=== PATIENT | male | born 1985 | race Caucasian/White ===

== ENCOUNTER 2019-10-27 13:05 | Emergency (ER) | payer SELFPAY ==
--- NOTE | 2019-10-27 13:51 | ER Document Report ---
ED Medical Screen (RME) - General Chief Complaint: Scrotal Pain, Acute Onset Stated Complaint: TESTICULAR PAIN Time Seen by Provider: 10/27/19 13:48 Mode of Arrival: Ambulatory Information source: Patient Notes: 34-year-old male presented to ED for complaint of right testicle discomfort. He states on October 17 the pain was so bad that it caused him to pass out. He states since then the pain is just been uncomfortable but his right testicle is drawn up into his pelvis. He states he went to [facility] this morning and they sent him to the emergency room. He is alert oriented respirations regular and unlabored speaking in full sentences. He states he does not smoke drinks maybe 6 times a year and no drugs. He states he does have a history of gout in his ankle and borderline diabetes. He is alert oriented respirations regular nonlabored speaking in full sentences. I have greeted and performed a rapid initial assessment of this patient. A comprehensive ED assessment and evaluation of the patient, analysis of test results and completion of medical decision making process will be conducted by an additional ED providers. - Related Data Allergies/Adverse Reactions: No Known Allergies Allergy (Unverified 10/27/19 13:45) Physical Exam - Vital signs Vitals: Temp Pulse Resp BP Pulse Ox 98.3 F 67 20 145/80 H 97 10/27/19 13:18 10/27/19 13:18 10/27/19 13:18 10/27/19 13:18 10/27/19 13:18 Course - Vital Signs Vital signs: Temp Pulse Resp BP Pulse Ox 98.3 F 67 20 145/80 H 97 10/27/19 13:45 10/27/19 13:18 10/27/19 13:18 10/27/19 13:18 10/27/19 13:18
--- NOTE | 2019-10-27 14:32 | ER Document Report ---
ED GI/ - General Chief Complaint: Scrotal Pain, Acute Onset Stated Complaint: TESTICULAR PAIN Time Seen by Provider: 10/27/19 13:48 Mode of Arrival: Ambulatory Notes: CHIEF COMPLAINT: Right testicular pain a week ago HPI: 34-year-old male presenting to the emergency department complaining of sudden onset of right testicular pain that occurred a week ago. Patient states he was sitting on the couch and stretched backward and sudden sharp pain in the right testicle region, felt like the right testicle pulled itself up into the lower abdomen. Patient states he "passed out" from the pain for a few minutes. Patient has had some intermittent discomfort through the last week in the right testicle but states today he is completely pain-free. He was somewhat concerned that the testicle seemed to be riding somewhat elevated on the right side relative to the left. Has not had any penile or testicular pain. Has not had any issues with urination. Has not had any flank pain. Went to an urgent care today and was referred into the emergency department for evaluation ROS: See HPI - all other systems were reviewed and are otherwise negative Constitutional: no fever Eyes: no drainage, no blurred vision ENT: no runny nose, no sore throat Cardiovascular: no chest pain Resp: no SOB, no cough GI: no vomiting, no diarrhea, no abdominal pain : no dysuria, positive testicular pain Integumentary: no rash Allergy: no hives Musculoskeletal: no extremity pain or swelling Neurological: no numbness/tingling, no weakness MEDICATIONS: I agree with the patient medications as charted by the RN. ALLERGIES: I agree with the allergies as charted by the RN. PAST MEDICAL HISTORY/PAST SURGICAL HISTORY: Reviewed and agree as charted by RN. SOCIAL HISTORY: Reviewed and agree as charted by RN. FAMILY HISTORY: No significant familial comorbid conditions directly related to patient complaint EXAM: Reviewed vital signs as charted by RN. CONSTITUTIONAL: Alert and oriented and responds appropriately to questions. Well-appearing; well-nourished, no acute distress HEAD: Normocephalic; atraumatic EYES: PERRL; Conjunctivae clear, sclerae non-icteric ENT: normal nose; no rhinorrhea; moist mucous membranes NECK: Supple without meningismus CARD: RRR; no murmurs, no clicks, no rubs, no gallops; symmetric distal pulses RESP: Normal chest excursion without splinting or tachypnea; breath sounds clear and equal bilaterally; no wheezes, no rhonchi, no rales, pulse oximetry 98% on room air not hypoxic ABD/GI: Normal bowel sounds; non-distended; soft, non-tender, no rebound, no guarding; no palpable organomegaly or masses. : Circumcised male. Bilateral testicles are present, the left testicle is lower than the right. The right testicle is slightly high but I am able to manually bring it down into the scrotum. There is no visible erythema or lesions. No visible urethral discharge. There is no testicular pain on palpation of the right or left testicle. No palpable masses. BACK: The back appears normal and is non-tender to palpation, there is no CVA tenderness EXT: Normal ROM in all joints; non-tender to palpation; no cyanosis, no effusions, no edema SKIN: Normal color for age and race; warm; dry; good turgor; no acute lesions noted NEURO: Moves all extremities equally; Motor and sensory function intact PSYCH: The patient's mood and manner are appropriate. Grooming and personal hygiene are appropriate. MDM: 34-year-old male who had sudden onset of pain a week ago in the right testicle but has absolutely no pain today. Right testicle is slightly high relative to the left but I am able to manually bring it down. We will send him for an ultrasound to ensure no blood flow issue but I have lower suspicion for an actual torsion given his lack of pain, lack of swelling or edema after 1 week. - Related Data Allergies/Adverse Reactions: No Known Allergies Allergy (Unverified 10/27/19 13:45) Past Medical History - General Information source: Patient - Social History Smoking Status: Never Smoker Family History: Reviewed & Not Pertinent Patient has homicidal ideation: No Physical Exam - Vital signs Vitals: Temp Pulse Resp BP Pulse Ox 98.3 F 67 20 145/80 H 97 10/27/19 13:18 10/27/19 13:18 10/27/19 13:18 10/27/19 13:18 10/27/19 13:18 Course - Re-evaluation Re-evalutation: 10/27/19 16:07 Ultrasound does not show evidence of torsion hernia or other abnormalities. Urine does not show evidence of infection. He has no pain at this time. Gave patient strict return instructions will have him follow-up with urology outpatient - Vital Signs Vital signs: Temp Pulse Resp BP Pulse Ox 98.3 F 67 20 145/80 H 97 10/27/19 13:45 10/27/19 13:18 10/27/19 13:18 10/27/19 13:18 10/27/19 13:18 Discharge - Discharge Clinical Impression: Testicular pain, right Condition: Stable Disposition: HOME, SELF-CARE Instructions: Testicular Pain ([facility]) Additional Instructions: Follow-up closely with urology for further evaluation of the testicular pain. Your ultrasound today did not show evidence of torsion or infection. If you have recurrent pain return for reevaluation as discussed. Referrals: PEE VIEIRA PA-C [Primary Care Provider] - Follow up as needed RUTH DOMINGUEZ MD [NO LOCAL MD] - Follow up as needed
[2019-10-27 14:54] LABS: APPEARANCE,URINE CLEAR; BILIRUBIN,URINE NEGATIVE (NEGATIVE); COLOR,URINE YELLOW; GLUCOSE, URINE NEGATIVE (NEGATIVE); KETONES,URINE NEGATIVE (NEGATIVE); LEUKOCYTE ESTERASE,URINE NEGATIVE (NEGATIVE); NITRITE,URINE NEGATIVE (NEGATIVE); PROTEIN,URINE NEGATIVE (NEGATIVE); URINE SPECIFIC GRAVITY 1.017; UROBILINOGEN,URINE NEGATIVE mg/dL (<2.0)
--- NOTE | 2019-10-27 15:41 | RADIOLOGY REPORT (SQ) ---
EXAM DESCRIPTION: U/S SCROTUM W/DOPPLER IMAGES COMPLETED DATE/TIME: 10/27/2019 3:22 pm REASON FOR STUDY: Severe pain right testicle on October 17 now right jim COMPARISON: None. TECHNIQUE: Static and realtime sabillon scale imaging of the scrotum and testes. Selected color Doppler and spectral images recorded to document blood flow. LIMITATIONS: None. FINDINGS: RIGHT: TESTICLE: Normal size. Normal echotexture. Normal blood flow. No mass. EPIDIDYMIS: Normal. HYDROCELE OR VARICOCELE: No. HERNIA OR EXTRA-TESTICULAR MASS: No. OTHER: No other significant finding. LEFT: TESTICLE: Normal size. Normal echotexture. Normal blood flow. No mass. EPIDIDYMIS: Normal. HYDROCELE OR VARICOCELE: No. HERNIA OR EXTRA-TESTICULAR MASS: No. OTHER: No other significant finding. IMPRESSION: NORMAL SCROTAL ULTRASOUND. NO EVIDENCE OF TESTICULAR MASS OR TORSION. TECHNICAL DOCUMENTATION: JOB ID: [id number] [employer]- All Rights Reserved Reading location - IP/workstation name: [email or web address]
[2019-10-27 16:31] VITALS: BP 128/86
[2019-10-27 17:37] LABS: CHLAM PCR NOT DETECTED (NOT DETECT)
== END 2019-10-27 16:30 | disposition home or self-care (01) ==
LOC: ER 13:05
DX: N50.811 Right testicular pain (principal); N50.82 Scrotal pain
CPT/HCPCS: 36415; 76870; 81001; 87086; 87491; 87591; 93976; 99284